=== PATIENT | female | born 2005 | race Caucasian/White ===

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

== ENCOUNTER 2025-05-04 15:00 | Outpatient (RCR) | payer BC, SELFPAY | END 2025-05-04 17:17 | disposition home or self-care (01) | PROVIDERS: PCP Family Medicine; Visit Provider Student in an Organized Health Care Education/Training Program | DX: M54.50 Low back pain, unspecified (principal); G89.29 Other chronic pain; Z51.89 Encounter for other specified aftercare | CPT/HCPCS: 97110; 97112; 97161 ==